=== PATIENT | male | born 1965 | race Caucasian/White ===

== ENCOUNTER 2021-03-19 22:01 | Emergency (ER) | payer OTHER ==
[~2021-03-19] VITALS: Ht 180.3 cm; Wt 72.6 kg
[~2021-03-19 22:01] MED LIST: CITA20 PO; LOSARTAN POTAS100 MG PO; Lisinopril2.5 MG PO
== END 2021-03-20 02:37 | disposition home or self-care (01) ==
LOC: ER 22:01
DX: Z00.00 Encounter for general adult medical examination without abnormal findings (principal); R44.0 Auditory hallucinations; R44.1 Visual hallucinations; Z88.2 Allergy status to sulfonamides; Z91.040 Latex allergy status; Z79.899 Other long term (current) drug therapy; Z87.891 Personal history of nicotine dependence
CPT/HCPCS: 99283

== ENCOUNTER 2023-05-18 18:55 | Observation (INO) | payer OTHER ==
[~2023-05-18] VITALS: Ht 175.3 cm; Wt 75.2 kg
[2023-05-18 19:31] LABS: BASOPHILS ABSOLUTE AUTO 0.07 K/mm3 (0.00-0.23); BASOPHILS PERCENT AUTO 2 % (0-2); EOSINOPHILS ABSOLUTE AUTO 0.13 K/mm3 (0.00-0.68); EOSINOPHILS PERCENT AUTO 3 % (0-6); Hematocrit 40.3 % (37.0-53.0); Hemoglobin 13.9 g/dL (13.5-17.5); IMMATURE GRAN PERCENT AUTO 0 % (0-1); LYMPHOCYTES ABSOLUTE AUTO 1.42 K/mm3 (0.84-5.20); LYMPHOCYTES PERCENT AUTO 34 % (21-46); MONOCYTES ABSOLUTE AUTO 0.29 K/mm3 (0.16-1.47); MONOCYTES PERCENT AUTO 7 % (4-13); Mean Corpuscular HGB 27.7 pg (26.0-34.0); Mean Corpuscular HGB Conc 34.5 g/dL (31.5-36.5); Mean Corpuscular Volume 80 fL (80-100); Mean Platelet Volume 9.2 fL (9.1-12.4); NEUTROPHILS ABSOLUTE AUTO 2.31 K/mm3 (1.96-9.15); NEUTROPHILS PERCENT AUTO 55 % (41-73); Platelet Count 219 K/mm3 (150-400); RDW Coefficient Variation 13.4 % (11.7-14.2); Red Blood Cell Count 5.02 M/mm3 (4.30-5.90); White Blood Cell Count 4.22 K/mm3 (4.00-11.30)
[2023-05-18 19:48] LABS: Albumin, Blood 3.4 g/dL (3.4-5.0); Albumin/Globulin Ratio 0.8 (0.8-1.8); Bilirubin, Total 0.6 mg/dL (0.1-1.0); Bun/Creatinine Ratio 21.8 (12.0-20.0); Calcium, Blood 8.7 mg/dL (8.5-10.1); Creatinine, Blood 1.01 mg/dL (0.60-1.20); Globulin, Blood 4.1 g/dL (2.2-4.0); Potassium, Blood 4.3 mmol/L (3.5-5.5); Total Protein, Blood 7.5 g/dL (6.4-8.2)
--- NOTE | 2023-05-18 23:27 | NUR ---
05/18/23 1183 Jaya BeckmanET AND SPEARS RING WITH 3 ITEMS ON IT GIVEN TO PATIENTS MOM PER PATIENT REQUEST PRIOR TO TAKING PATIENT TO PREOP.
[2023-05-19] VITALS (25 sets, daily range): BP systolic 127–152; BP diastolic 88–117
--- NOTE | 2023-05-19 02:47 | NUR ---
ADMISSION NOTE PATIENT ARRIVED TO FLOOR AT 0105. BEDSIDE REPORT RECEIVED FROM LIVAN KING-PACU. A&OX4. PATIENT EFFECTIVELY COMMUNICATES NEEDS. VSS. RR EVEN AND UNLABORED ON RA. POST-OP VS INITIATED. LR INFUSING @125ML/HR. PATIENT DENIES PAIN. NO ACUTE SIGNS OR SYMPTOMS AT THIS TIME. PATIENT ORIENTED TO ROOM AND CALL LIGHT. BED LOW AND LOCKED. CALL LIGHT WITHIN REACH.
--- NOTE | 2023-05-19 04:43 | NUR ---
BLACK AND WHITE PRINTER OPERATOR SUMMARY NO ACUTE EVENTS THIS SHIFT. A&OX4. PATIENT EFFECTIVELY COMMUNICATES NEEDS. VSS. RR EVEN AND UNLABORED ON RA. NO PAIN REPORTED TO THIS RN. LR INFUSING @125ML/HR. BED LOW AND LOCKED. CALL LIGHT WITHIN REACH. THIS RN WILL CONTINUE TO MONITOR.
[2023-05-19] MEDS ORDERED: Norco 5-325 Ta1 EACH PO (12:41)
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
--- NOTE | 2023-05-19 13:15 | NUR ---
DISCHARGE NOTE- PT STATED PAIN WAS COMPLETELY MANAGED, NO S&S OF DISTRESS, TOLLERATING PO WITH NO C/O NAUSEA. PT WAS GIVEN VERBAL AND WRITTEN DISCHARGE INSTRUCTIONS AND ACKNOWLEDGED UNDERSTANDING OF THEM. PT WAS ESCORTED OUT VIA WC BY THE SUPERINTENDENT [employer] STORAGE.
== END 2023-05-19 13:10 | disposition home or self-care (01) ==
LOC: ER 18:55 → MEDS 18:56 → ER 23:07 → MEDS 23:07 → ER 05-19 11:52 → MEDS 05-19 12:10
PROVIDERS: Emergency Medicine; ADMIT Surgery
PROC: 0WQF0ZZ Repair Abdominal Wall, Open Approach (ICD-10-PCS; principal; 2023-05-19)
DX: K43.6 Other and unspecified ventral hernia with obstruction, without gangrene (principal); F41.9 Anxiety disorder, unspecified; I95.9 Hypotension, unspecified; G62.9 Polyneuropathy, unspecified; Z72.0 Tobacco use; Z88.2 Allergy status to sulfonamides; Z88.8 Allergy status to other drugs, medicaments and biological substances
CPT/HCPCS: 74177; 80053; 83690; 85025; 96361; 96374-59; 96375; 96376; 99285-25; G0378; J0360; J0690; J1170; J2250; J2704; J3010; J7030; J7120; Q9967

== ENCOUNTER 2023-07-16 07:31 | Day surgery (SDC) | payer OTHER ==
[~2023-07-16] VITALS: Ht 177.8 cm; Wt 76.3 kg
[~2023-07-16 07:31] MED LIST changes: +CELEXA40 M1; +DICL75ER PO; +DICLOFENAC SODI50 GM; +GABA300 PO; +Norco 5-325 Ta1 EACH PO; +SILD25T; +ZOLP10
[2023-07-16 12:07] VITALS: BP 109/90
== END 2023-07-16 12:01 | disposition home or self-care (01) ==
LOC: ORSCSDS 07:31
PROVIDERS: Surgery
PROC: 0YU60JZ Supplement Left Inguinal Region with Synthetic Substitute, Open Approach (ICD-10-PCS; principal; 2023-07-16 09:00)
DX: K40.90 Unilateral inguinal hernia, without obstruction or gangrene, not specified as recurrent (principal); F17.210 Nicotine dependence, cigarettes, uncomplicated; B19.20 Unspecified viral hepatitis C without hepatic coma; F41.9 Anxiety disorder, unspecified; G62.9 Polyneuropathy, unspecified; Z79.899 Other long term (current) drug therapy
CPT/HCPCS: 93005; 93010; C1781; J0690; J1100; J1885; J2371; J2405; J2704; J2795; J3010; J7120

== ENCOUNTER 2023-08-17 11:02 | Observation (INO) | payer OTHER ==
[~2023-08-17] VITALS: Ht 177.8 cm; Wt 74.2 kg
[2023-08-17 11:23] LABS: BASOPHILS ABSOLUTE AUTO 0.06 K/mm3 (0.00-0.23); BASOPHILS PERCENT AUTO 1 % (0-2); EOSINOPHILS ABSOLUTE AUTO 0.06 K/mm3 (0.00-0.68); EOSINOPHILS PERCENT AUTO 1 % (0-6); Hematocrit 40.2 % (37.0-53.0); Hemoglobin 13.8 g/dL (13.5-17.5); IMMATURE GRAN ABSOLUTE AUTO 0.02 K/mm3 (0.00-0.10); IMMATURE GRAN PERCENT AUTO 0 % (0-1); LYMPHOCYTES ABSOLUTE AUTO 1.18 K/mm3 (0.84-5.20); LYMPHOCYTES PERCENT AUTO 22 % (21-46); MONOCYTES ABSOLUTE AUTO 0.35 K/mm3 (0.16-1.47); MONOCYTES PERCENT AUTO 7 % (4-13); Mean Corpuscular HGB 27.8 pg (26.0-34.0); Mean Corpuscular HGB Conc 34.3 g/dL (31.5-36.5); Mean Corpuscular Volume 81 fL (80-100); Mean Platelet Volume 10.6 fL (9.1-12.4); NEUTROPHILS ABSOLUTE AUTO 3.68 K/mm3 (1.96-9.15); NEUTROPHILS PERCENT AUTO 69 % (41-73); Platelet Count 210 K/mm3 (150-400); RDW Standard Deviation 40.6 fL (35.1-46.3); Red Blood Cell Count 4.96 M/mm3 (4.30-5.90); White Blood Cell Count 5.35 K/mm3 (4.00-11.30)
[2023-08-17] MEDS ORDERED: BUPR75 PO (11:30)
[2023-08-17 11:46] LABS: Albumin, Blood 3.7 g/dL (3.4-5.0); Albumin/Globulin Ratio 0.9 (0.8-1.8); Bilirubin, Total 0.9 mg/dL (0.1-1.0); Bun/Creatinine Ratio 20.2 (12.0-20.0); Calcium, Blood 8.7 mg/dL (8.5-10.1); Creatinine, Blood 0.99 mg/dL (0.60-1.20); Globulin, Blood 3.9 g/dL (2.2-4.0); Potassium, Blood 4.4 mmol/L (3.5-5.5); Total Protein, Blood 7.6 g/dL (6.4-8.2)
[2023-08-17 14:14] LABS: U Amphetamine Screen DETECTED; U Barbituate Screen Not Detected; U Benzodiazapine Screen Not Detected; U Buprenorphine Screen Not Detected; U Cannabinoids Screen Not Detected; U Cocaine Screen Not Detected; U Methadone Screen Not Detected; U Methamphetamine Screen DETECTED; U Opiates Screen Not Detected; U Oxycodone Screen Not Detected; U Phencyclidine Screen Not Detected; U Propoxyphene Screen Not Detected
--- NOTE | 2023-08-17 18:44 | NUR ---
SHIFT SUMMARY PT ARRIVED TO UNIT VIA BED FROM ER. PT'S MOTHER WAS WITH HIM. ALL OF HIS BELONGINGS WERE BROUGHT WITH HIM, THEY ARE IN PATIENT BAGS IN THE ROOM. HIS TOP DENTURES ARE IN DENTURE CUP IN ROOM. PT IS ALERT AND ORIENTED TO PERSON, PT MAY BE ORIENTED TO MORE, HOWEVER PT'S SPEECH IS SLURRED AND HARD TO UNDERSTAND. 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 CONDOM CATH APPLIED. PT STATED LAST BOWL MOVEMENT WAS THIS MORNING. PT AND HIS FAMILY WERE EDUCATED ON FIRE PROTOCOL, EDUCATED ASSISTANT PRESS OPERATOR OFFSET LIGHT. PT AND HIS FAMILY ARE AWARE WE ARE WAITING ON MRI TO SEE IF PT'S INTRAVASCULAR FILTER IS COMPATIBLE WITH MR. PT CONTINUES TO HAVE SLURRED SPEECH. PT RESTING IN HIS BED, BED ALARM ON, FAMILY IN WITH PT, CALL LIGHT WITHIN REACH.
[2023-08-17 19:06] VITALS: BP 140/97
--- NOTE | 2023-08-17 22:00 | NUR ---
ASSUMING CARE OF PT
[2023-08-17 23:12] VITALS: BP 139/95
--- NOTE | 2023-08-17 23:23 | NUR ---
UPDATE PT CONFUSED, BEGAN PULLING AT LINES AND ATTEMPTING TO GET OOB. PT PULLED OUT IV. PT DIFFICULT TO RE-DIRECT. PT SAYING HE "HAS TO LEAVE AND PEOPLE ARE TRYING TO GET HIM TO SAY THINGS." NOTIFIED. PLAN FOR PT TO HAVE SITTER. NEW IV PLACED. BED ALARM IN PLACE. WILL CONT TO MONITOR.
[2023-08-18 03:18] VITALS: BP 124/89
[2023-08-18 04:19] LABS: BASOPHILS ABSOLUTE AUTO 0.05 K/mm3 (0.00-0.23); BASOPHILS PERCENT AUTO 1 % (0-2); EOSINOPHILS ABSOLUTE AUTO 0.06 K/mm3 (0.00-0.68); EOSINOPHILS PERCENT AUTO 1 % (0-6); Hematocrit 37.7 % (37.0-53.0); Hemoglobin 12.7 g/dL (13.5-17.5); IMMATURE GRAN ABSOLUTE AUTO 0.02 K/mm3 (0.00-0.10); IMMATURE GRAN PERCENT AUTO 1 % (0-1); LYMPHOCYTES ABSOLUTE AUTO 1.19 K/mm3 (0.84-5.20); LYMPHOCYTES PERCENT AUTO 28 % (21-46); MONOCYTES ABSOLUTE AUTO 0.29 K/mm3 (0.16-1.47); MONOCYTES PERCENT AUTO 7 % (4-13); Mean Corpuscular HGB 27.9 pg (26.0-34.0); Mean Corpuscular HGB Conc 33.7 g/dL (31.5-36.5); Mean Corpuscular Volume 83 fL (80-100); Mean Platelet Volume 10.3 fL (9.1-12.4); NEUTROPHILS ABSOLUTE AUTO 2.69 K/mm3 (1.96-9.15); NEUTROPHILS PERCENT AUTO 63 % (41-73); Platelet Count 182 K/mm3 (150-400); RDW Standard Deviation 42.4 fL (35.1-46.3); Red Blood Cell Count 4.55 M/mm3 (4.30-5.90)
[2023-08-18 04:42] LABS: Anion Gap 5 mmol/L (6-16); Blood Urea Nitrogen 15 mg/dL (8-24); Bun/Creatinine Ratio 15.4 (12.0-20.0); CHOL/HDL RATIO 1.7; CO2, Blood 24 mmol/L (21-32); Calcium, Blood 8.2 mg/dL (8.5-10.1); Chloride, Blood 111 mmol/L (98-108); Cholesterol 112 mg/dL (50-200); Creatinine, Blood 0.97 mg/dL (0.60-1.20); Glomerular Filtration Rate 91 (60-); Glucose, Blood 55 mg/dL (70-99); HDL Cholesterol 65 mg/dL (>39); LDL/HDL RATIO 0.6; Low Density Lipoprotein Chol 37 mg/dL (0-110); Potassium, Blood 3.6 mmol/L (3.5-5.5); Sodium, Blood 140 mmol/L (136-145); Triglycerides 50 mg/dL (30-160); Very Low Density Lipoprot Chol 10 mg/dL (6-32)
--- NOTE | 2023-08-18 05:33 | NUR ---
UPDATE PT AM LABS SHOWS GLUCOSE 55. PT ABLE TO WAKE UP AND FOLLOW DIRECTIONS FOR APPLE JUICE INTAKE. PER MD PT ABLE TO ADVANCE DIET TO REG DIET WITH ASPIRATION PRECAUTIONS. WILL RECHECK BLOOD SUGAR IN 15 MIN.
--- NOTE | 2023-08-18 05:34 | NUR ---
SHIFT SUMMARY PT ALERT AND ORIENTED TO SELF AND FAMILY. PT WAKES UP CONFUSED AND BEGINS TO PULL AT LINES T/O SHIFT. PT HAS SITTER AT BEDSIDE. PT HAS BILATERAL EQUAL CANDY SPREADER HELPER STRENGTH. R PUPIL REACTIVE AND BRISK. UNABLE TO ASSESS L D/T HX. BLE HAVE EQUAL STRENGTH. SPEECH IS SLOW TO RESPOND. BP STABLE. OXYGEN SATURATION MAINTAINED ABOVE 92% ON RA. PT HAS BED ALARM IN PLACE. SEE NOTES FOR UPDATES T/O SHIFT. CALL LIGHT WITHIN REACH. PT'S MOTHER AT BEDSIDE. WILL CONT TO MONITOR UNTIL REPORT GIVEN TO DAYSHIFT RN.
[2023-08-18 08:38] VITALS: BP 137/100
[2023-08-18 10:26] VITALS: BP 131/92
--- NOTE | 2023-08-18 10:43 | NUR ---
Pt is alert, oriented and very appropriate in conversation. STates he cannot remember yesterday's events and still feels disoriented. Able to give a coherent medical history, and his mother at the bedside says that he seems at his normal baseline in his mentation and conversation at this time. Pt says that he occasionally has nausea, but does not have any now; this was a result of a bariatric surgery which he had 20 years ago. Tolerating food and drink this morning without difficulty. Per report, medical records regarding IVF filter information have been requested from [place] [facility] so that MRI can hopefully be able to be done.
[2023-08-18 14:49] VITALS: BP 127/92
--- NOTE | 2023-08-18 14:52 | NUR ---
Pt states that he had some nausea with lunch, now resolved. he is lying in bed, states that he still feels tingling all over and has some "disorientation" but that it is hard to describe how he is feeling.
--- NOTE | 2023-08-18 15:37 | NUR ---
RECORDS REQUEST WAS RESENT THIS MORNING TO ELIJAH. THIS AFTER NOON THE PT'S MOTHER, MARLYS, STATES THAT POSSIBLY THE IVC FILTER WAS PLACED AT [facility] IN [place]. RECORDS REQUESTED FROM THEIR MEDICAL RECORDS DEPT WELL.
--- NOTE | 2023-08-18 17:07 | NUR ---
Medical records received from [facility]. No mention of IVC filter placement. Awaiting records from [facility]. Dr. Morris notified, pt is now medical status.
--- NOTE | 2023-08-18 18:03 | NUR ---
The pt has been alert, oriented and appropriate in conversation, cooperative with care. He has c/o tingling all over, as well as chronic numbness which he has in his feet/legs. He also said that he felt disoriented at time today, as well as feeling vertigo and having difficulty finding his words occasionally. Occupational therapist reported seeing that the pt had twice an "absent stare" for a minute or so. Physical therapist reported that the pt had difficulty controlling his body movements. Once today while awake and talking he had some mild tremors of the hands, but they did not last long. The pt did not voluntarily want to get out of bed at all today. He spent most of the day napping in between care. Occasionally he had nausea, which he has at times at home since his lap band bariatric surgery 20 years ago. He does better with small frequent meals, he says. NGT to low intermittent suction evacuting dark green fluid. Pt remains NPO; about 800 cc gastric output today. No BM today, active bowel tones without abdominal distention. Wendy intact, dry. Minimal urine output today, condom cath in use. Pt has been continent but needed to be reminded to urinate; he was usually lethargic in between care.
--- NOTE | 2023-08-18 18:11 | NUR ---
The pt has been alert, oriented and appropriate in conversation, cooperative with care. He has c/o tingling all over, as well as chronic numbness which he has in his feet/legs. He also said that he felt disoriented at time today, as well as feeling vertigo and having difficulty finding his words occasionally. Occupational therapist reported seeing that the pt had twice an "absent stare" for a minute or so. Physical therapist reported that the pt had difficulty controlling his body movements. Once today while awake and talking he had some mild tremors of the hands, but they did not last long. The pt did not voluntarily want to get out of bed at all today. He spent most of the day napping in between care. Occasionally he had nausea, which he has at times at home since his lap band bariatric surgery 20 years ago. He does better with small frequent meals, he says.
[2023-08-18 20:28] VITALS: BP 130/88
[2023-08-19 03:35] VITALS: BP 124/88
[2023-08-19 04:58] LABS: BASOPHILS ABSOLUTE AUTO 0.05 K/mm3 (0.00-0.23); BASOPHILS PERCENT AUTO 1 % (0-2); EOSINOPHILS ABSOLUTE AUTO 0.14 K/mm3 (0.00-0.68); EOSINOPHILS PERCENT AUTO 4 % (0-6); Hematocrit 40.8 % (37.0-53.0); Hemoglobin 13.8 g/dL (13.5-17.5); IMMATURE GRAN PERCENT AUTO 0 % (0-1); LYMPHOCYTES PERCENT AUTO 40 % (21-46); MONOCYTES ABSOLUTE AUTO 0.38 K/mm3 (0.16-1.47); MONOCYTES PERCENT AUTO 11 % (4-13); Mean Corpuscular HGB 28.5 pg (26.0-34.0); Mean Corpuscular HGB Conc 33.8 g/dL (31.5-36.5); Mean Corpuscular Volume 84 fL (80-100); Mean Platelet Volume 10.3 fL (9.1-12.4); NEUTROPHILS ABSOLUTE AUTO 1.53 K/mm3 (1.96-9.15); NEUTROPHILS PERCENT AUTO 44 % (41-73); Platelet Count 172 K/mm3 (150-400); RDW Coefficient Variation 14.5 % (11.7-14.2); Red Blood Cell Count 4.85 M/mm3 (4.30-5.90)
--- NOTE | 2023-08-19 05:11 | NUR ---
SHIFT SUMMARY THIS RN ASSUMED CARE OF PATIENT AT 1900. A&O. ABLE TO MAKE NEEDS KNOWN. GENERALIZED WEAKNESS NOTED. HAYNES. NO NEURO CHANGES NOTED. EQUAL STRENGTH IN EXTREMETIES. ABLE TO REPOSITION SELF IN BED. USING URINAL INDEPENDENTLY. VITALS STABLE. BED IN LOWEST POSITION AND CALL LIGHT WITHIN REACH. THIS RN WILL REPORT TO ONCOMING RN.
[2023-08-19 05:36] LABS: Albumin, Blood 3.3 g/dL (3.4-5.0); Anion Gap 4 mmol/L (6-16); Blood Urea Nitrogen 10 mg/dL (8-24); Bun/Creatinine Ratio 10.1 (12.0-20.0); CO2, Blood 28 mmol/L (21-32); Calcium, Blood 8.5 mg/dL (8.5-10.1); Chloride, Blood 109 mmol/L (98-108); Creatinine, Blood 0.99 mg/dL (0.60-1.20); Glomerular Filtration Rate 89 (60-); Glucose, Blood 93 mg/dL (70-99); Phosphorus, Blood 3.3 mg/dL (2.5-4.9); Potassium, Blood 3.6 mmol/L (3.5-5.5); Sodium, Blood 141 mmol/L (136-145)
[2023-08-19 08:53] VITALS: BP 131/92
--- NOTE | 2023-08-19 09:05 | NUR ---
Dr. Forde here to see the patient.
--- NOTE | 2023-08-19 12:06 | NUR ---
Pt is sitting up in chair, eating lunch. He walked in the hallway with walker with OT and did very well, she said.
[2023-08-19] MEDS ORDERED: DOXYLAMINE SUCCINATE PO (15:26)
[2023-08-19] MEDS ORDERED: LEVE500 PO (15:30)
[2023-08-19] MEDS ORDERED: ASPI81CH PO (15:30)
--- NOTE | 2023-08-19 15:31 | NUR ---
PT's home medications were reviewed with the patient and confirmed in the home medication reconciliation. Called Dr. Forde to verify which medications were to be continued. Order received to continue all home medications (gabapentin, celexa, doxylamine succinate) but to discontinue to Welbutrin.
== END 2023-08-19 15:45 | disposition home or self-care (01) ==
LOC: ER 11:02 → ERHOLD 11:03 → PCU 11:03 → ERHOLD 11:03 → PCU 15:51
PROVIDERS: Student in an Organized Health Care Education/Training Program; ADMIT Family Medicine
DX: R56.9 Unspecified convulsions (principal); R47.81 Slurred speech; R26.81 Unsteadiness on feet; F15.10 Other stimulant abuse, uncomplicated; R47.1 Dysarthria and anarthria; I10 Essential (primary) hypertension; H54.7 Unspecified visual loss; Z88.2 Allergy status to sulfonamides; Z88.5 Allergy status to narcotic agent; Z88.6 Allergy status to analgesic agent; Z79.82 Long term (current) use of aspirin; Z79.899 Other long term (current) drug therapy
CPT/HCPCS: 36415; 70450; 70496; 70498; 80048; 80053; 80061; 80069; 82947; 85025; 93005; 93010; 96365; 96366; 96372; 96372-59; 96375; 96376; 97112; 97116; 97162; 97165; 97530; 97535; 99285-25; A9270; G0378; J1650; J1953; J2060; J7030; J7050; Q9967

== ENCOUNTER 2024-05-08 08:34 | Day surgery (SDC) | payer OTHER ==
[~2024-05-08] VITALS: Ht 172.7 cm; Wt 79.4 kg
[~2024-05-08 08:34] MED LIST changes: +ASPI81CH PO; +BUPR75 PO; +DOXYLAMINE SUCCINATE PO; +LEVE500 PO; +Lactated Ringer's 1,000 ML IV SCH
[2024-05-08 10:18] VITALS: BP 135/101
[2024-05-08] MEDS ORDERED: WARF5 PO (10:22)
[2024-05-08] MEDS ORDERED: PRAZ1 (10:23)
[2024-05-08] MEDS ORDERED: ONDA4ODT (10:25)
--- NOTE | 2024-05-08 10:27 | NUR ---
Ambulatory in Day Surgery Patient confirms NPO status and agrees with scheduled surgery. History, Chart, Medications and Allergies reviewed before start of procedure.Pre-Op teaching done. Pt verbalizes understanding. Patient States Post-Procedure ride home has been arranged.
[2024-05-08 10:28] VITALS: BP 135/106
[2024-05-08 10:30] VITALS: BP 128/88
[2024-05-08] MEDS ORDERED: Prinivil10 MG (10:31)
[2024-05-08] MEDS ORDERED: propofoL 40 ML IV ONE (10:52)
--- NOTE | 2024-05-08 10:53 | NUR ---
05/08/24 1053 Lulu Carrillo History, Chart, Medications and Allergies reviewed before start of procedure. 3-LEAD EKG REVIEWED WITH PHYSICIAN PRIOR TO START OF PROCEDURE. MONITOR INTACT WITH CONTINUOUS PULSE OXIMETRY, CONTINUOUS END TITAL CO2, AND INTERMITTENT BLOOD PRESSURE. O2 VIA N/C INTACT THROUGHOUT SEDATION/PROCEDURE. SEE ANESTHESIA RECORDS
[2024-05-08 11:20] VITALS: BP 123/81
[2024-05-08 11:40] VITALS: BP 139/97
--- NOTE | 2024-05-08 11:44 | NUR ---
UP TO DRESS. GAIT STEADY. Discharge instructions reviewed with patient. Patient verbalizes understanding. Copy given to patient to take home. Reid arranged homw with momGeovanna.
== END 2024-05-08 11:51 | disposition home or self-care (01) ==
LOC: ORSCMMR 08:34 → ORD 10:00 → ORSCMMR 10:00
PROVIDERS: Internal Medicine Gastroenterology
PROC: 0DB98ZX Excision of Duodenum, Via Natural or Artificial Opening Endoscopic, Diagnostic (ICD-10-PCS; principal; 2024-05-08 10:00)
PROC: 0DB48ZX Excision of Esophagogastric Junction, Via Natural or Artificial Opening Endoscopic, Diagnostic (ICD-10-PCS; principal; 2024-05-08 10:00)
PROC: 0DB58ZX Excision of Esophagus, Via Natural or Artificial Opening Endoscopic, Diagnostic (ICD-10-PCS; principal; 2024-05-08 10:00)
DX: R11.2 Nausea with vomiting, unspecified (principal); K44.9 Diaphragmatic hernia without obstruction or gangrene; K21.00 Gastro-esophageal reflux disease with esophagitis, without bleeding; G40.909 Epilepsy, unspecified, not intractable, without status epilepticus; I10 Essential (primary) hypertension; Z86.718 Personal history of other venous thrombosis and embolism; Z79.01 Long term (current) use of anticoagulants; Z79.899 Other long term (current) drug therapy
CPT/HCPCS: 88305; J2704; J7120